=== PATIENT | female | born 1970 | race Two or more races ===

== ENCOUNTER → 2017-09-20 | Outpatient (CLI) | payer OTHER ==
[~2017-09-20] MED LIST: DEPAKOTE ER500 MG PO; DILANTIN100 MG PO; DOLOGESIC CAPSU1 CAP PO; IBUPROFEN800 MG PO; KEPPRA500 MG PO; LEVAQUIN500 MG PO; ORPH100T PO; VOLTAREM 50 MG PO
== END | disposition home or self-care (01) ==
LOC: PPHC 16:50
DX: Z00.00 Encounter for general adult medical examination without abnormal findings (principal)

== ENCOUNTER 2017-09-21 06:36 | Outpatient (CLI) | payer OTHER | END 2017-09-21 06:44 | disposition home or self-care (01) | LOC: LAB 06:36 | DX: Z00.00 Encounter for general adult medical examination without abnormal findings (principal) ==

== ENCOUNTER 2017-09-22 06:41 | Outpatient (CLI) | payer OTHER | END 2017-09-22 06:48 | disposition home or self-care (01) | LOC: LAB 06:41 | DX: E11.9 Type 2 diabetes mellitus without complications (principal) ==

== ENCOUNTER 2017-09-25 13:30 | Outpatient (CLI) | payer OTHER | END 2017-09-25 13:34 | disposition home or self-care (01) | LOC: RAD 13:30 | DX: M25.571 Pain in right ankle and joints of right foot (principal) ==

== ENCOUNTER → 2017-09-29 | Outpatient (CLI) | payer OTHER ==
[~2017-09-29] VITALS: Ht 152.4 cm; Wt 81.6 kg
== END | disposition home or self-care (01) ==
LOC: PPHC 10:59
DX: M77.51 Other enthesopathy of right foot and ankle (principal)

== ENCOUNTER 2018-06-27 11:38 | Outpatient (CLI) | payer OTHER | END 2018-06-27 11:46 | disposition home or self-care (01) | LOC: LAB 11:38 | DX: Z12.11 Encounter for screening for malignant neoplasm of colon (principal); R03.0 Elevated blood-pressure reading, without diagnosis of hypertension; Z13.1 Encounter for screening for diabetes mellitus ==

== ENCOUNTER 2018-06-27 13:03 | Outpatient (CLI) | payer OTHER | END 2018-06-27 13:18 | disposition home or self-care (01) | LOC: MAMO-SONO 13:03 | DX: Z12.31 Encounter for screening mammogram for malignant neoplasm of breast (principal) ==

== ENCOUNTER 2018-07-09 07:47 | Emergency (ER) | payer OTHER ==
[~2018-07-09] VITALS: Ht 162.6 cm; Wt 77.1 kg
== END 2018-07-09 14:50 | disposition home or self-care (01) ==
LOC: ER 07:47
DX: K52.89 Other specified noninfective gastroenteritis and colitis (principal)

== ENCOUNTER 2019-01-18 08:54 | Outpatient (CLI) | payer OTHER | END 2019-01-18 09:03 | disposition home or self-care (01) | LOC: LAB 08:54 | DX: J11.1 Influenza due to unidentified influenza virus with other respiratory manifestations (principal); J11.89 Influenza due to unidentified influenza virus with other manifestations ==

== ENCOUNTER 2019-08-27 07:18 | Outpatient (CLI) | payer OTHER | END 2019-08-27 07:21 | disposition home or self-care (01) | LOC: RAD 07:18 | DX: M17.0 Bilateral primary osteoarthritis of knee (principal); M77.32 Calcaneal spur, left foot ==

== ENCOUNTER 2020-06-26 10:05 | Outpatient (CLI) | payer OTHER | END 2020-06-26 10:19 | disposition home or self-care (01) | LOC: NUCLEAR 10:05 | PROVIDERS: ATTEND General Practice | DX: M85.89 Other specified disorders of bone density and structure, multiple sites (principal); G40.909 Epilepsy, unspecified, not intractable, without status epilepticus ==

== ENCOUNTER 2020-06-29 10:31 | Outpatient (CLI) | payer OTHER | END 2020-06-29 10:41 | disposition home or self-care (01) | LOC: MAMO-SONO 10:31 | PROVIDERS: ATTEND General Practice | DX: Z12.31 Encounter for screening mammogram for malignant neoplasm of breast (principal) ==

== ENCOUNTER 2020-07-24 13:29 | Outpatient (CLI) | payer OTHER | END 2020-07-24 14:00 | disposition home or self-care (01) | LOC: MAMO-SONO 13:29 | DX: Z12.31 Encounter for screening mammogram for malignant neoplasm of breast (principal); N64.59 Other signs and symptoms in breast ==

== ENCOUNTER 2022-03-28 07:36 | Outpatient (CLI) | payer OTHER | END 2022-03-28 07:43 | disposition home or self-care (01) | LOC: MAMO-SONO 07:36 | DX: Z12.31 Encounter for screening mammogram for malignant neoplasm of breast (principal); N64.59 Other signs and symptoms in breast ==

== ENCOUNTER 2022-03-28 08:49 | Outpatient (CLI) | payer OTHER | END 2022-03-28 08:52 | disposition home or self-care (01) | LOC: NUCLEAR 08:49 | DX: Z13.820 Encounter for screening for osteoporosis (principal); M81.0 Age-related osteoporosis without current pathological fracture ==

== ENCOUNTER 2023-06-20 07:56 | Outpatient (CLI) | payer OTHER | END 2023-06-20 14:29 | disposition home or self-care (01) | LOC: MAMO-SONO 07:56 | DX: Z12.31 Encounter for screening mammogram for malignant neoplasm of breast (principal); Z12.39 Encounter for other screening for malignant neoplasm of breast ==

== ENCOUNTER 2024-04-12 10:00 | Outpatient (CLI) | payer OTHER | END 2024-04-12 10:03 | disposition home or self-care (01) | LOC: NUCLEAR 10:00 | DX: M81.0 Age-related osteoporosis without current pathological fracture (principal) ==

== ENCOUNTER 2024-10-25 11:43 | Outpatient (CLI) | payer OTHER | END 2024-10-25 11:52 | disposition home or self-care (01) | LOC: MAMO-SONO 11:43 | DX: N64.4 Mastodynia (principal); Z12.31 Encounter for screening mammogram for malignant neoplasm of breast ==

== ENCOUNTER 2025-04-17 08:10 | Outpatient (CLI) | payer OTHER | END 2025-04-17 08:16 | disposition home or self-care (01) | LOC: RAD 08:10 | PROVIDERS: ATTEND General Practice | DX: J44.9 Chronic obstructive pulmonary disease, unspecified (principal) ==